=== PATIENT | male | born 1965 | race Caucasian/White ===

== ENCOUNTER 2023-01-28 10:42 | Inpatient (IN) | payer MEDICAID ==
[2023-01-28] MEDS ORDERED: Labetalol 20 MG/4 ML Syringe IVPUSH ONE (11:06)
[2023-01-28 11:15] LABS: BLOOD UREA NITROGEN,BUN 10 mg/dL (7-18); BUN/CREATININE RATIO 9.1 (9-20); CALCIUM 9.1 mg/dL (8.6-10.2); CARBON DIOXIDE,CO2 27 mmol/L (21-32); CHLORIDE,CL 100 mmol/L (100-110); CREATININE 1.1 mg/dL (0.70-1.30); EST CRCL DRUG DOSING (CG) 68.44 mL/min; ESTIMATED GFR 78 mL/min (>60); GLUCOSE RANDOM 144 mg/dL (80-116); POTASSIUM,K 3.5 mmol/L (3.5-5.3); SODIUM,NA 137 mmol/L (135-145)
[2023-01-28 11:17] LABS: BASOPHILS ABSOLUTE AUTO 0.1 x10-3/uL (0.0-0.3); BASOPHILS PERCENT AUTO 1.1 % (0.3-3.8); EOSINOPHILS ABSOLUTE AUTO 0.2 x10-3/uL (0.0-0.6); EOSINOPHILS PERCENT AUTO 3.5 % (0.1-6.8); HEMATOCRIT 44.4 % (38.3-50.1); HEMOGLOBIN 15.1 g/dL (12.9-17.7); LYMPHOCYTES ABSOLUTE AUTO 2.3 x10-3/uL (0.5-4.5); LYMPHOCYTES PERCENT AUTO 33.3 % (15.8-45.3); MEAN CORPUSCULAR HEMOGLOBIN 30.4 pg (27.0-33.3); MEAN CORPUSCULAR HGB CONC 34.1 g/dL (28.7-35.3); MEAN CORPUSCULAR VOLUME 89.1 fL (80.8-98.7); MEAN PLATELET VOLUME 7.7 fL (6.7-11.0); MONOCYTES ABSOLUTE AUTO 0.6 x10-3/uL (0.0-1.2); MONOCYTES PERCENT AUTO 8.8 % (5.5-15.2); NEUTROPHILS ABSOLUTE AUTO 3.6 x10-3/uL (1.7-6.9); NEUTROPHILS PERCENT AUTO 53.3 % (40.3-71.8); PLATELET COUNT,PLT 248 x10(3)uL (117-477); RED BLOOD CELL COUNT 4.98 x10(6)uL (3.90-5.90); RED CELL DISTRIBUTION WIDTH 13.7 % (12.4-15.0); WHITE BLOOD CELL COUNT,WBC 6.8 x10-3/uL (3.2-10.1)
[2023-01-28] MEDS: Sodium Chloride 0.9% 10 ML Syringe FLUSH PRN ×2 (11:18→12:24)
[2023-01-28] MEDS ORDERED: amLODIPine 10 MG Tab PO STA (11:18)
[2023-01-28] MEDS ORDERED: cloNIDine 0.1 MG Tab PO STA (11:18)
[2023-01-28 11:21] LABS: A/G RATIO 0.8; ALANINE AMINOTRANSFERASE,ALT 12 U/L (12-36); ALBUMIN 3.8 g/dL (3.5-5.2); ALKALINE PHOSPHATASE 136 IU/L (56-112); ASPARTATE AMNIOTRANSFERASE,AST 18 IU/L (5-25); BILIRUBIN TOTAL 0.4 mg/dL (0.1-1.3); PROTEIN TOTAL,TP 8.9 g/dL (6.0-8.0)
[2023-01-28 11:32] LABS: TROPONIN I 8.6 pg/mL (4.0-60.3)
[2023-01-28 11:39] LABS: AMPHETAMINES SCREEN, URINE NEGATIVE (NEGATIVE); BARBITURATE SCREEN,URINE NEGATIVE (NEGATIVE); BENZODIAZEPINES SCREEN,URINE NEGATIVE (NEGATIVE); BUPRENORPHINE SCREEN,URINE NEGATIVE (NEGATIVE); METHADONE SCREEN, URINE NEGATIVE (NEGATIVE); METHAMPHETAMINE SCREEN, URINE NEGATIVE (NEGATIVE); OXYCODONE SCREEN,URINE NEGATIVE (NEGATIVE); PROPOXYPHENE SCREEN,URINE NEGATIVE (NEGATIVE); THC SCREEN,URINE NEGATIVE (NEGATIVE)
[2023-01-28] MEDS ORDERED: hydrALAZINE 20 MG/ML SDV IVPUSH ONE (12:11)
[2023-01-28] MEDS ORDERED: Iopamidol 755 Mg/ML 100 ML Bottle IV ONE (16:23)
[2023-01-28] MEDS ORDERED: Morphine 4 MG/ML VIAL IVPUSH ONE (16:24)
[2023-01-28] MEDS ORDERED: Clopidogrel 75 MG Tab PO ONE ×2 (17:29→19:45)
[2023-01-28] MEDS ORDERED: Acetaminophen 325 MG Tab PO PRN (17:29)
[2023-01-28] MEDS ORDERED: Ondansetron 4 MG/2 ML SDV IV PRN (17:29)
[2023-01-28] MEDS ORDERED: Aspirin 81 MG Tab.Chew PO ONE ×2 (17:29→19:45)
[2023-01-28] MEDS ORDERED: Enoxaparin 40 MG/0.4 ML Syringe SUBCUT SCH (17:30)
[2023-01-28] MEDS: Nicotine 21 MG/24 Hr Patch TRDERM SCH (17:35)
[2023-01-28] MEDS ORDERED: Pneumococcal Polyvalent-23 Vaccine 0.5 ML SDV SUBCUT ONE (18:09)
[2023-01-28] MEDS: Enoxaparin 40 MG/0.4 ML Syringe SUBCUT SCH (20:27)
[2023-01-29 06:48] LABS: BASOPHILS ABSOLUTE AUTO 0.1 x10-3/uL (0.0-0.3); BASOPHILS PERCENT AUTO 1.1 % (0.3-3.8); EOSINOPHILS ABSOLUTE AUTO 0.1 x10-3/uL (0.0-0.6); EOSINOPHILS PERCENT AUTO 2.4 % (0.1-6.8); HEMATOCRIT 40.3 % (38.3-50.1); HEMOGLOBIN 13.8 g/dL (12.9-17.7); LYMPHOCYTES ABSOLUTE AUTO 1.5 x10-3/uL (0.5-4.5); LYMPHOCYTES PERCENT AUTO 26.5 % (15.8-45.3); MEAN CORPUSCULAR HEMOGLOBIN 30.3 pg (27.0-33.3); MEAN CORPUSCULAR HGB CONC 34.3 g/dL (28.7-35.3); MEAN CORPUSCULAR VOLUME 88.2 fL (80.8-98.7); MEAN PLATELET VOLUME 7.6 fL (6.7-11.0); MONOCYTES ABSOLUTE AUTO 0.4 x10-3/uL (0.0-1.2); MONOCYTES PERCENT AUTO 6.8 % (5.5-15.2); NEUTROPHILS ABSOLUTE AUTO 3.5 x10-3/uL (1.7-6.9); NEUTROPHILS PERCENT AUTO 63.2 % (40.3-71.8); PLATELET COUNT,PLT 251 x10(3)uL (117-477); RED BLOOD CELL COUNT 4.57 x10(6)uL (3.90-5.90); RED CELL DISTRIBUTION WIDTH 13.8 % (12.4-15.0); WHITE BLOOD CELL COUNT,WBC 5.6 x10-3/uL (3.2-10.1)
[2023-01-29 07:03] LABS: A/G RATIO 0.7; ALANINE AMINOTRANSFERASE,ALT 14 U/L (12-36); ALBUMIN 3.4 g/dL (3.5-5.2); ALKALINE PHOSPHATASE 116 IU/L (56-112); ASPARTATE AMNIOTRANSFERASE,AST 21 IU/L (5-25); BILIRUBIN TOTAL 0.5 mg/dL (0.1-1.3); BLOOD UREA NITROGEN,BUN 9 mg/dL (7-18); CARBON DIOXIDE,CO2 26 mmol/L (21-32); CHLORIDE,CL 103 mmol/L (100-110); CREATININE 0.9 mg/dL (0.70-1.30); EST CRCL DRUG DOSING (CG) 83.65 mL/min; ESTIMATED GFR 99 mL/min (>60); GLUCOSE RANDOM 113 mg/dL (80-116); POTASSIUM,K 3.6 mmol/L (3.5-5.3); SODIUM,NA 137 mmol/L (135-145)
[2023-01-29] MEDS: Nicotine 21 MG/24 Hr Patch TRDERM SCH (08:29)
[2023-01-29] MEDS: NICOTINE PATCH TRDERM SCH (08:30)
[2023-01-29] MEDS: amLODIPine 10 MG Tab PO SCH (08:31)
[2023-01-29] MEDS: Atenolol 25 MG Tab PO SCH (08:31)
[2023-01-29] MEDS ORDERED: Gadoteridol 279.3 MG/ML 10 ML SDV IVPUSH ONE (14:07)
[2023-01-29] MEDS: Enoxaparin 40 MG/0.4 ML Syringe SUBCUT SCH (20:52)
[2023-01-30] MEDS: NICOTINE PATCH TRDERM SCH (08:15)
[2023-01-30] MEDS: Nicotine 21 MG/24 Hr Patch TRDERM SCH (08:15)
[2023-01-30] MEDS: Atenolol 25 MG Tab PO SCH (08:17)
[2023-01-30] MEDS: amLODIPine 10 MG Tab PO SCH (08:17)
[2023-01-30] MEDS ORDERED: Atenolol 25 MG Tab PO ONE (10:36)
[2023-01-30] MEDS: Enoxaparin 40 MG/0.4 ML Syringe SUBCUT SCH (20:35)
[2023-01-31 06:31] LABS: BASOPHILS ABSOLUTE AUTO 0.1 x10-3/uL (0.0-0.3); BASOPHILS PERCENT AUTO 1.5 % (0.3-3.8); EOSINOPHILS ABSOLUTE AUTO 0.4 x10-3/uL (0.0-0.6); HEMATOCRIT 43.8 % (38.3-50.1); HEMOGLOBIN 14.8 g/dL (12.9-17.7); LYMPHOCYTES ABSOLUTE AUTO 2.2 x10-3/uL (0.5-4.5); LYMPHOCYTES PERCENT AUTO 35.2 % (15.8-45.3); MEAN CORPUSCULAR HEMOGLOBIN 30.2 pg (27.0-33.3); MEAN CORPUSCULAR HGB CONC 33.8 g/dL (28.7-35.3); MEAN CORPUSCULAR VOLUME 89.4 fL (80.8-98.7); MEAN PLATELET VOLUME 7.5 fL (6.7-11.0); MONOCYTES ABSOLUTE AUTO 0.6 x10-3/uL (0.0-1.2); MONOCYTES PERCENT AUTO 10.4 % (5.5-15.2); NEUTROPHILS ABSOLUTE AUTO 2.9 x10-3/uL (1.7-6.9); NEUTROPHILS PERCENT AUTO 46.9 % (40.3-71.8); PLATELET COUNT,PLT 257 x10(3)uL (117-477); RED CELL DISTRIBUTION WIDTH 13.7 % (12.4-15.0); WHITE BLOOD CELL COUNT,WBC 6.3 x10-3/uL (3.2-10.1)
[2023-01-31 06:37] LABS: BLOOD UREA NITROGEN,BUN 14 mg/dL (7-18); CARBON DIOXIDE,CO2 28 mmol/L (21-32); CHLORIDE,CL 104 mmol/L (100-110); EST CRCL DRUG DOSING (CG) 75.28 mL/min; ESTIMATED GFR 87 mL/min (>60); GLUCOSE RANDOM 90 mg/dL (80-116); POTASSIUM,K 3.9 mmol/L (3.5-5.3); SODIUM,NA 138 mmol/L (135-145)
[2023-01-31] MEDS ORDERED: Thiamine 100 MG Tab PO ONE (08:00)
[2023-01-31] MEDS: Nicotine 21 MG/24 Hr Patch TRDERM SCH (08:54)
[2023-01-31] MEDS: NICOTINE PATCH TRDERM SCH (08:54)
[2023-01-31] MEDS: amLODIPine 10 MG Tab PO SCH (08:55)
[2023-01-31] MEDS: Atenolol 50 MG Tab PO SCH (08:56)
[2023-01-31] MEDS: Folic Acid/Vitamin B Complex With C Cap PO SCH (09:06)
[2023-01-31] MEDS: Enoxaparin 40 MG/0.4 ML Syringe SUBCUT SCH (20:13)
[2023-01-31] MEDS: Thiamine 100 MG Tab PO SCH (20:15)
[2023-01-31] MEDS: Sodium Chloride 0.9% 10 ML Syringe FLUSH PRN (20:18)
[2023-02-01 06:24] LABS: BASOPHILS ABSOLUTE AUTO 0.1 x10-3/uL (0.0-0.3); BASOPHILS PERCENT AUTO 1.5 % (0.3-3.8); EOSINOPHILS ABSOLUTE AUTO 0.3 x10-3/uL (0.0-0.6); HEMATOCRIT 42.8 % (38.3-50.1); HEMOGLOBIN 14.8 g/dL (12.9-17.7); LYMPHOCYTES ABSOLUTE AUTO 2.5 x10-3/uL (0.5-4.5); MEAN CORPUSCULAR HEMOGLOBIN 30.9 pg (27.0-33.3); MEAN CORPUSCULAR HGB CONC 34.7 g/dL (28.7-35.3); MEAN CORPUSCULAR VOLUME 89.1 fL (80.8-98.7); MEAN PLATELET VOLUME 7.6 fL (6.7-11.0); MONOCYTES ABSOLUTE AUTO 0.7 x10-3/uL (0.0-1.2); MONOCYTES PERCENT AUTO 10.6 % (5.5-15.2); NEUTROPHILS ABSOLUTE AUTO 2.7 x10-3/uL (1.7-6.9); NEUTROPHILS PERCENT AUTO 42.9 % (40.3-71.8); PLATELET COUNT,PLT 262 x10(3)uL (117-477); WHITE BLOOD CELL COUNT,WBC 6.4 x10-3/uL (3.2-10.1)
[2023-02-01 06:31] LABS: BLOOD UREA NITROGEN,BUN 14 mg/dL (7-18); CALCIUM 8.8 mg/dL (8.6-10.2); CARBON DIOXIDE,CO2 27 mmol/L (21-32); CHLORIDE,CL 102 mmol/L (100-110); EST CRCL DRUG DOSING (CG) 75.28 mL/min; ESTIMATED GFR 87 mL/min (>60); GLUCOSE RANDOM 86 mg/dL (80-116); POTASSIUM,K 3.5 mmol/L (3.5-5.3); SODIUM,NA 132 mmol/L (135-145)
[2023-02-01] MEDS ORDERED: Metoprolol Succinate 25 MG Tab.ER PO ONE (07:53)
[2023-02-01] MEDS ORDERED: Losartan 50 MG Tab PO ONE (08:13)
[2023-02-01] MEDS: amLODIPine 10 MG Tab PO SCH (09:05)
[2023-02-01] MEDS: Nicotine 21 MG/24 Hr Patch TRDERM SCH (09:05)
[2023-02-01] MEDS: NICOTINE PATCH TRDERM SCH (09:06)
[2023-02-01] MEDS: Folic Acid/Vitamin B Complex With C Cap PO SCH (09:07)
[2023-02-01] MEDS: Atenolol 50 MG Tab PO SCH (09:07)
[2023-02-01] MEDS: Thiamine 100 MG Tab PO SCH (20:20)
[2023-02-01] MEDS: Enoxaparin 40 MG/0.4 ML Syringe SUBCUT SCH (20:20)
[2023-02-02 06:36] LABS: BASOPHILS ABSOLUTE AUTO 0.1 x10-3/uL (0.0-0.3); BASOPHILS PERCENT AUTO 0.9 % (0.3-3.8); EOSINOPHILS ABSOLUTE AUTO 0.3 x10-3/uL (0.0-0.6); EOSINOPHILS PERCENT AUTO 4.4 % (0.1-6.8); HEMATOCRIT 45.3 % (38.3-50.1); HEMOGLOBIN 15.4 g/dL (12.9-17.7); LYMPHOCYTES ABSOLUTE AUTO 2.2 x10-3/uL (0.5-4.5); LYMPHOCYTES PERCENT AUTO 33.2 % (15.8-45.3); MEAN CORPUSCULAR HEMOGLOBIN 30.1 pg (27.0-33.3); MEAN CORPUSCULAR HGB CONC 33.9 g/dL (28.7-35.3); MEAN CORPUSCULAR VOLUME 88.7 fL (80.8-98.7); MEAN PLATELET VOLUME 7.5 fL (6.7-11.0); MONOCYTES ABSOLUTE AUTO 0.7 x10-3/uL (0.0-1.2); MONOCYTES PERCENT AUTO 10.3 % (5.5-15.2); NEUTROPHILS ABSOLUTE AUTO 3.4 x10-3/uL (1.7-6.9); NEUTROPHILS PERCENT AUTO 51.2 % (40.3-71.8); PLATELET COUNT,PLT 277 x10(3)uL (117-477); RED BLOOD CELL COUNT 5.11 x10(6)uL (3.90-5.90); RED CELL DISTRIBUTION WIDTH 13.7 % (12.4-15.0); WHITE BLOOD CELL COUNT,WBC 6.6 x10-3/uL (3.2-10.1)
[2023-02-02 06:40] LABS: BLOOD UREA NITROGEN,BUN 16 mg/dL (7-18); CALCIUM 9.2 mg/dL (8.6-10.2); CARBON DIOXIDE,CO2 27 mmol/L (21-32); CHLORIDE,CL 103 mmol/L (100-110); EST CRCL DRUG DOSING (CG) 75.28 mL/min; ESTIMATED GFR 87 mL/min (>60); GLUCOSE RANDOM 82 mg/dL (80-116); POTASSIUM,K 4.2 mmol/L (3.5-5.3); SODIUM,NA 137 mmol/L (135-145)
[2023-02-02] MEDS: Nicotine 21 MG/24 Hr Patch TRDERM SCH (08:24)
[2023-02-02] MEDS: Folic Acid/Vitamin B Complex With C Cap PO SCH (08:25)
[2023-02-02] MEDS: NICOTINE PATCH TRDERM SCH (08:25)
[2023-02-02] MEDS: amLODIPine 10 MG Tab PO SCH (08:25)
[2023-02-02] MEDS: Atenolol 50 MG Tab PO SCH (08:25)
[2023-02-02] MEDS: BIKTARVY PO SCH (17:52)
[2023-02-02] MEDS: Thiamine 100 MG Tab PO SCH (19:59)
[2023-02-02] MEDS: Enoxaparin 40 MG/0.4 ML Syringe SUBCUT SCH (19:59)
[2023-02-03] MEDS: Nicotine 21 MG/24 Hr Patch TRDERM SCH (07:59)
[2023-02-03] MEDS: Atenolol 50 MG Tab PO SCH (08:00)
[2023-02-03] MEDS: NICOTINE PATCH TRDERM SCH (08:00)
[2023-02-03] MEDS: Folic Acid/Vitamin B Complex With C Cap PO SCH (08:00)
[2023-02-03] MEDS: amLODIPine 10 MG Tab PO SCH (08:00)
[2023-02-03] MEDS ORDERED: Losartan 50 MG Tab PO SCH (09:15)
[2023-02-03 12:09] LABS: % CD 4 POS. LYMPH. 14.4 % (30.8-58.5); ABSOLUTE CD 4 HELPER 374 /uL (359-1519); BASO (ABSOLUTE) 0.1 x10E3/uL (0.0-0.2); BASOS 2 % (Not Estab.); EOS 5 % (Not Estab.); EOS (ABSOLUTE) 0.3 x10E3/uL (0.0-0.4); HEMATOCRIT 43.4 % (37.5-51.0); HEMOGLOBIN 15.3 g/dL (13.0-17.7); IMMATURE GRANS (ABS) 0.1 x10E3/uL (0.0-0.1); IMMATURE GRANULOCYTES 1 % (Not Estab.); LYMPHS 42 % (Not Estab.); LYMPHS (ABSOLUTE) 2.6 x10E3/uL (0.7-3.1); MCH 31.2 pg (26.6-33.0); MCHC 35.3 g/dL (31.5-35.7); MCV 88 fL (79-97); MONOCYTES 11 % (Not Estab.); MONOCYTES(ABSOLUTE) 0.7 x10E3/uL (0.1-0.9); NEUTROPHILS 39 % (Not Estab.); NEUTROPHILS (ABSOLUTE) 2.4 x10E3/uL (1.4-7.0); PLATELETS 258 x10E3/uL (150-450); RBC 4.91 x10E6/uL (4.14-5.80); RDW 13.1 % (11.6-15.4)
[2023-02-03] MEDS ORDERED: Atenolol 25 MG Tab PO ONE (13:21)
[2023-02-03] MEDS: BIKTARVY PO SCH (18:04)
[2023-02-03] MEDS: Enoxaparin 40 MG/0.4 ML Syringe SUBCUT SCH (20:50)
[2023-02-03] MEDS: Thiamine 100 MG Tab PO SCH (20:50)
[2023-02-04] MEDS: Nicotine 21 MG/24 Hr Patch TRDERM SCH (08:44)
[2023-02-04] MEDS: Folic Acid/Vitamin B Complex With C Cap PO SCH (08:45)
[2023-02-04] MEDS: NICOTINE PATCH TRDERM SCH (08:45)
[2023-02-04] MEDS: amLODIPine 10 MG Tab PO SCH (08:46)
[2023-02-04] MEDS: Atenolol 50 MG Tab PO SCH (08:46)
[2023-02-04] MEDS: BIKTARVY PO SCH (18:01)
[2023-02-04] MEDS: Enoxaparin 40 MG/0.4 ML Syringe SUBCUT SCH (19:32)
[2023-02-04] MEDS: Thiamine 100 MG Tab PO SCH (21:03)
[2023-02-05] MEDS: Nicotine 21 MG/24 Hr Patch TRDERM SCH (08:00)
[2023-02-05] MEDS: NICOTINE PATCH TRDERM SCH (08:02)
[2023-02-05] MEDS: Folic Acid/Vitamin B Complex With C Cap PO SCH (08:07)
[2023-02-05] MEDS: amLODIPine 10 MG Tab PO SCH (08:11)
[2023-02-05] MEDS: BIKTARVY PO SCH (17:44)
[2023-02-05] MEDS: Thiamine 100 MG Tab PO SCH (20:14)
[2023-02-05] MEDS: Enoxaparin 40 MG/0.4 ML Syringe SUBCUT SCH (20:14)
[2023-02-06] MEDS: Nicotine 21 MG/24 Hr Patch TRDERM SCH (08:05)
[2023-02-06] MEDS: NICOTINE PATCH TRDERM SCH (08:05)
[2023-02-06] MEDS: amLODIPine 10 MG Tab PO SCH (08:06)
[2023-02-06] MEDS: Folic Acid/Vitamin B Complex With C Cap PO SCH (08:07)
[2023-02-06] MEDS: BIKTARVY PO SCH (17:52)
[2023-02-06] MEDS: Enoxaparin 40 MG/0.4 ML Syringe SUBCUT SCH (20:30)
[2023-02-06] MEDS: Thiamine 100 MG Tab PO SCH (20:30)
[2023-02-07] MEDS: Nicotine 21 MG/24 Hr Patch TRDERM SCH (08:12)
[2023-02-07] MEDS: amLODIPine 10 MG Tab PO SCH (08:13)
[2023-02-07] MEDS: Hydrochlorothiazide 25 MG Tab PO SCH (08:13)
[2023-02-07] MEDS: NICOTINE PATCH TRDERM SCH (08:13)
[2023-02-07] MEDS: Folic Acid/Vitamin B Complex With C Cap PO SCH (08:14)
[2023-02-07] MEDS ORDERED: BIKTARVY PO SCH (09:00)
[2023-02-07] MEDS: BIKTARVY PO SCH (18:03)
[2023-02-07] MEDS: Thiamine 100 MG Tab PO SCH (20:10)
[2023-02-07] MEDS: Enoxaparin 40 MG/0.4 ML Syringe SUBCUT SCH (20:11)
[2023-02-08] MEDS: Nicotine 21 MG/24 Hr Patch TRDERM SCH (09:02)
[2023-02-08] MEDS: Folic Acid/Vitamin B Complex With C Cap PO SCH (09:03)
[2023-02-08] MEDS: amLODIPine 10 MG Tab PO SCH (09:03)
[2023-02-08] MEDS: NICOTINE PATCH TRDERM SCH (09:04)
[2023-02-08] MEDS: Hydrochlorothiazide 25 MG Tab PO SCH (09:06)
[2023-02-08] MEDS: BIKTARVY PO SCH (17:42)
[2023-02-08] MEDS: Enoxaparin 40 MG/0.4 ML Syringe SUBCUT SCH (21:41)
[2023-02-08] MEDS: Thiamine 100 MG Tab PO SCH (21:42)
[2023-02-09] MEDS: Nicotine 21 MG/24 Hr Patch TRDERM SCH (08:17)
[2023-02-09] MEDS: Hydrochlorothiazide 25 MG Tab PO SCH (08:18)
[2023-02-09] MEDS: NICOTINE PATCH TRDERM SCH (08:18)
[2023-02-09] MEDS: amLODIPine 10 MG Tab PO SCH (08:19)
[2023-02-09] MEDS: Folic Acid/Vitamin B Complex With C Cap PO SCH (08:19)
[2023-02-09] MEDS: BIKTARVY PO SCH (17:56)
[2023-02-09] MEDS: Enoxaparin 40 MG/0.4 ML Syringe SUBCUT SCH (21:46)
[2023-02-09] MEDS: Thiamine 100 MG Tab PO SCH (21:47)
[2023-02-10] MEDS: amLODIPine 10 MG Tab PO SCH (08:49)
[2023-02-10] MEDS: Folic Acid/Vitamin B Complex With C Cap PO SCH (08:49)
[2023-02-10] MEDS: NICOTINE PATCH TRDERM SCH (08:49)
[2023-02-10] MEDS: Nicotine 21 MG/24 Hr Patch TRDERM SCH (08:49)
[2023-02-10] MEDS: Hydrochlorothiazide 25 MG Tab PO SCH (08:50)
[2023-02-10] MEDS: BIKTARVY PO SCH (18:01)
[2023-02-10] MEDS: Thiamine 100 MG Tab PO SCH (20:31)
[2023-02-10] MEDS: Enoxaparin 40 MG/0.4 ML Syringe SUBCUT SCH (20:31)
[2023-02-11] MEDS: Hydrochlorothiazide 25 MG Tab PO SCH (09:58)
[2023-02-11] MEDS: amLODIPine 10 MG Tab PO SCH (09:58)
[2023-02-11] MEDS: Folic Acid/Vitamin B Complex With C Cap PO SCH (09:58)
[2023-02-11] MEDS: NICOTINE PATCH TRDERM SCH (09:59)
[2023-02-11] MEDS: Nicotine 21 MG/24 Hr Patch TRDERM SCH (09:59)
[2023-02-11] MEDS: BIKTARVY PO SCH (17:26)
[2023-02-11] MEDS: Enoxaparin 40 MG/0.4 ML Syringe SUBCUT SCH (20:09)
[2023-02-11] MEDS: Thiamine 100 MG Tab PO SCH (20:10)
[2023-02-12] MEDS: NICOTINE PATCH TRDERM SCH (08:18)
[2023-02-12] MEDS: Hydrochlorothiazide 25 MG Tab PO SCH (08:18)
[2023-02-12] MEDS: Folic Acid/Vitamin B Complex With C Cap PO SCH (08:18)
[2023-02-12] MEDS: amLODIPine 10 MG Tab PO SCH (08:18)
[2023-02-12] MEDS: Nicotine 21 MG/24 Hr Patch TRDERM SCH (08:19)
[2023-02-12] MEDS: BIKTARVY PO SCH (17:51)
[2023-02-12] MEDS: Enoxaparin 40 MG/0.4 ML Syringe SUBCUT SCH (20:21)
[2023-02-12] MEDS: Thiamine 100 MG Tab PO SCH (20:21)
[2023-02-13] MEDS: Nicotine 21 MG/24 Hr Patch TRDERM SCH (08:15)
[2023-02-13] MEDS: Hydrochlorothiazide 25 MG Tab PO SCH (08:16)
[2023-02-13] MEDS: NICOTINE PATCH TRDERM SCH (08:16)
[2023-02-13] MEDS: amLODIPine 10 MG Tab PO SCH (08:16)
[2023-02-13] MEDS: Folic Acid/Vitamin B Complex With C Cap PO SCH (08:17)
[2023-02-13] MEDS: BIKTARVY PO SCH (18:27)
[2023-02-13] MEDS: Enoxaparin 40 MG/0.4 ML Syringe SUBCUT SCH (20:50)
[2023-02-13] MEDS: Thiamine 100 MG Tab PO SCH (20:51)
[2023-02-14] MEDS: Nicotine 21 MG/24 Hr Patch TRDERM SCH (08:14)
[2023-02-14] MEDS: NICOTINE PATCH TRDERM SCH (08:15)
[2023-02-14] MEDS: amLODIPine 10 MG Tab PO SCH (08:16)
[2023-02-14] MEDS: Hydrochlorothiazide 25 MG Tab PO SCH (08:16)
[2023-02-14] MEDS: Folic Acid/Vitamin B Complex With C Cap PO SCH (08:16)
[2023-02-14] MEDS: BIKTARVY PO SCH (18:27)
[2023-02-14] MEDS: Enoxaparin 40 MG/0.4 ML Syringe SUBCUT SCH (20:28)
[2023-02-14] MEDS: Thiamine 100 MG Tab PO SCH (20:28)
[2023-02-15] MEDS: Nicotine 21 MG/24 Hr Patch TRDERM SCH (08:14)
[2023-02-15] MEDS: NICOTINE PATCH TRDERM SCH (08:14)
[2023-02-15] MEDS: Hydrochlorothiazide 25 MG Tab PO SCH (08:15)
[2023-02-15] MEDS: amLODIPine 10 MG Tab PO SCH (08:15)
[2023-02-15] MEDS: Folic Acid/Vitamin B Complex With C Cap PO SCH (08:15)
[2023-02-15] MEDS: BIKTARVY PO SCH (17:53)
[2023-02-15] MEDS: Thiamine 100 MG Tab PO SCH (20:01)
[2023-02-15] MEDS: Enoxaparin 40 MG/0.4 ML Syringe SUBCUT SCH (20:01)
[2023-02-16] MEDS: Folic Acid/Vitamin B Complex With C Cap PO SCH (08:06)
[2023-02-16] MEDS: Hydrochlorothiazide 25 MG Tab PO SCH (08:06)
[2023-02-16] MEDS: amLODIPine 10 MG Tab PO SCH (08:06)
[2023-02-16] MEDS: NICOTINE PATCH TRDERM SCH (08:07)
[2023-02-16] MEDS: Nicotine 21 MG/24 Hr Patch TRDERM SCH (08:07)
[2023-02-16] MEDS: BIKTARVY PO SCH (17:48)
[2023-02-16] MEDS: Enoxaparin 40 MG/0.4 ML Syringe SUBCUT SCH (22:03)
[2023-02-16] MEDS: Thiamine 100 MG Tab PO SCH (22:04)
[2023-02-17] MEDS: Nicotine 21 MG/24 Hr Patch TRDERM SCH (08:04)
[2023-02-17] MEDS: Hydrochlorothiazide 25 MG Tab PO SCH (08:05)
[2023-02-17] MEDS: NICOTINE PATCH TRDERM SCH (08:05)
[2023-02-17] MEDS: Folic Acid/Vitamin B Complex With C Cap PO SCH (08:05)
[2023-02-17] MEDS: amLODIPine 10 MG Tab PO SCH (08:05)
== END 2023-02-17 09:15 | DRG 556 ==
LOC: FB.ED 10:42 → FB.MS 15:16
PROVIDERS: ADMIT Emergency Medicine; ATTEND Family Medicine
DX: M62.81 Muscle weakness (generalized) (principal); I16.9 Hypertensive crisis, unspecified; B20 Human immunodeficiency virus [HIV] disease; I10 Essential (primary) hypertension; R29.6 Repeated falls; F10.10 Alcohol abuse, uncomplicated; R51.9 Headache, unspecified; N39.41 Urge incontinence; F17.210 Nicotine dependence, cigarettes, uncomplicated; F41.9 Anxiety disorder, unspecified; F32.A Depression, unspecified; R15.9 Full incontinence of feces; Z90.49 Acquired absence of other specified parts of digestive tract; Z98.890 Other specified postprocedural states; Z88.5 Allergy status to narcotic agent
CPT/HCPCS: 36415; 70450; 70496; 70498; 71045; 72156; 72157; 72158; 80048; 80053; 80307; 83880; 84484; 85025; 86361; 90732; 93005; 93010; 96374; 96375; 97116-GP; 97161-GP; 97165-GO; 97530-GO; 97535-GO; 99285; 99285-25; A9270-GY; A9579; G0009; J0360; J1650; J3490; Q9967

== ENCOUNTER 2023-10-01 16:11 | Inpatient (IN) | payer MEDICAID ==
[2023-10-01] MEDS ORDERED: Labetalol 20 MG/4 ML Syringe IVPUSH ONE (16:43)
[2023-10-01] MEDS: Sodium Chloride 0.9% 10 ML Syringe FLUSH PRN ×2 (17:25→23:15)
[2023-10-01 17:26] LABS: BASOPHILS PERCENT AUTO 0.4 % (0.3-3.8); HEMATOCRIT 46.8 % (38.3-50.1); HEMOGLOBIN 16.5 g/dL (12.9-17.7); LYMPHOCYTES PERCENT AUTO 19.3 % (15.8-45.3); MEAN CORPUSCULAR HEMOGLOBIN 32.6 pg (27.0-33.3); MEAN CORPUSCULAR HGB CONC 35.3 g/dL (28.7-35.3); MEAN CORPUSCULAR VOLUME 92.5 fL (80.8-98.7); MEAN PLATELET VOLUME 8.8 fL (6.7-11.0); MONOCYTES ABSOLUTE AUTO 0.6 x10-3/uL (0.0-1.2); MONOCYTES PERCENT AUTO 5.9 % (5.5-15.2); NEUTROPHILS ABSOLUTE AUTO 7.6 x10-3/uL (1.7-6.9); NEUTROPHILS PERCENT AUTO 74.4 % (40.3-71.8); PLATELET COUNT,PLT 207 x10(3)uL (117-477); RED BLOOD CELL COUNT 5.06 x10(6)uL (3.90-5.90); RED CELL DISTRIBUTION WIDTH 12.5 % (12.4-15.0); WHITE BLOOD CELL COUNT,WBC 10.2 x10-3/uL (3.2-10.1)
[2023-10-01 17:28] LABS: BLOOD UREA NITROGEN,BUN 9 mg/dL (7-18); CALCIUM 9.6 mg/dL (8.6-10.2); CARBON DIOXIDE,CO2 29 mmol/L (21-32); CHLORIDE,CL 99 mmol/L (100-110); ESTIMATED GFR 87 mL/min (>60); GLUCOSE RANDOM 109 mg/dL (80-116); POTASSIUM,K 3.8 mmol/L (3.5-5.3); SODIUM,NA 136 mmol/L (135-145)
[2023-10-01 17:34] LABS: A/G RATIO 0.9; ALANINE AMINOTRANSFERASE,ALT 23 U/L (12-36); ALBUMIN 4.2 g/dL (3.5-5.2); ALKALINE PHOSPHATASE 125 IU/L (56-112); ASPARTATE AMNIOTRANSFERASE,AST 22 IU/L (5-25); BILIRUBIN TOTAL 0.5 mg/dL (0.1-1.3); MAGNESIUM 1.6 mg/dL (1.8-2.5); PHOSPHORUS 2.8 mg/dL (2.6-4.6); PROTEIN TOTAL,TP 8.9 g/dL (6.0-8.0)
[2023-10-01 17:43] LABS: TROPONIN I 5.3 pg/mL (4.0-60.3)
[2023-10-01] MEDS ORDERED: hydrALAZINE 20 MG/ML SDV IVPUSH ONE (17:49)
[2023-10-01] MEDS ORDERED: cloNIDine 0.1 MG Tab PO ONE (17:49)
[2023-10-01] MEDS ORDERED: Iopamidol 755 Mg/ML 100 ML Bottle IV ONE (18:28)
[2023-10-01] MEDS ORDERED: Ondansetron 4 MG/2 ML SDV IV PRN (20:15)
[2023-10-01] MEDS ORDERED: Acetaminophen 325 MG Tab PO PRN ×2 (20:15→20:23)
[2023-10-01] MEDS ORDERED: Magnesium Sulfate/Water 2 GM in Premix Bag 1 BAG IV ONE (20:26)
[2023-10-01] MEDS ORDERED: Nicotine 14 MG/24 Hr Patch TRDERM SCH (20:30)
[2023-10-01] MEDS: Enoxaparin 40 MG/0.4 ML Syringe SUBCUT SCH (22:26)
[2023-10-01] MEDS: Thiamine 100 MG Tab PO SCH (22:26)
[2023-10-02 08:00] LABS: BASOPHILS ABSOLUTE AUTO 0.1 x10-3/uL (0.0-0.3); BASOPHILS PERCENT AUTO 0.7 % (0.3-3.8); EOSINOPHILS ABSOLUTE AUTO 0.1 x10-3/uL (0.0-0.6); EOSINOPHILS PERCENT AUTO 0.6 % (0.1-6.8); HEMATOCRIT 42.3 % (38.3-50.1); HEMOGLOBIN 14.8 g/dL (12.9-17.7); LYMPHOCYTES ABSOLUTE AUTO 1.9 x10-3/uL (0.5-4.5); LYMPHOCYTES PERCENT AUTO 23.1 % (15.8-45.3); MEAN CORPUSCULAR HEMOGLOBIN 32.4 pg (27.0-33.3); MEAN CORPUSCULAR HGB CONC 34.9 g/dL (28.7-35.3); MEAN CORPUSCULAR VOLUME 92.8 fL (80.8-98.7); MEAN PLATELET VOLUME 9.2 fL (6.7-11.0); MONOCYTES ABSOLUTE AUTO 0.7 x10-3/uL (0.0-1.2); MONOCYTES PERCENT AUTO 8.6 % (5.5-15.2); NEUTROPHILS ABSOLUTE AUTO 5.4 x10-3/uL (1.7-6.9); PLATELET COUNT,PLT 190 x10(3)uL (117-477); RED BLOOD CELL COUNT 4.56 x10(6)uL (3.90-5.90); RED CELL DISTRIBUTION WIDTH 12.9 % (12.4-15.0); WHITE BLOOD CELL COUNT,WBC 8.1 x10-3/uL (3.2-10.1)
[2023-10-02 08:14] LABS: A/G RATIO 0.9; ALANINE AMINOTRANSFERASE,ALT 21 U/L (12-36); ALBUMIN 3.7 g/dL (3.5-5.2); ALKALINE PHOSPHATASE 108 IU/L (56-112); ASPARTATE AMNIOTRANSFERASE,AST 18 IU/L (5-25); BILIRUBIN TOTAL 0.8 mg/dL (0.1-1.3); BLOOD UREA NITROGEN,BUN 10 mg/dL (7-18); BUN/CREATININE RATIO 11.1 (9-20); CALCIUM 9.1 mg/dL (8.6-10.2); CARBON DIOXIDE,CO2 29 mmol/L (21-32); CHLORIDE,CL 100 mmol/L (100-110); CREATININE 0.9 mg/dL (0.70-1.30); EST CRCL DRUG DOSING (CG) 83.65 mL/min; ESTIMATED GFR 99 mL/min (>60); GLUCOSE RANDOM 111 mg/dL (80-116); POTASSIUM,K 3.3 mmol/L (3.5-5.3); PROTEIN TOTAL,TP 7.9 g/dL (6.0-8.0); SODIUM,NA 137 mmol/L (135-145)
[2023-10-02] MEDS: Multivitamins with Iron/Calcium/Folic Acid/Minerals Tab PO SCH (09:35)
[2023-10-02] MEDS: BIKTARVY PO SCH (09:35)
[2023-10-02] MEDS: Hydrochlorothiazide 25 MG Tab PO SCH (09:36)
[2023-10-02] MEDS: Nicotine 21 MG/24 Hr Patch TRDERM SCH (09:36)
[2023-10-02] MEDS: Atenolol 25 MG Tab PO SCH (09:38)
[2023-10-02] MEDS: amLODIPine 10 MG Tab PO SCH (09:38)
[2023-10-02] MEDS ORDERED: FLU (Flulaval Quad) 2023-24(6MOS UP)/PF 60 MCG/0.5 ML Syringe IM ONE (10:00)
[2023-10-02] MEDS: Enoxaparin 40 MG/0.4 ML Syringe SUBCUT SCH (20:03)
[2023-10-02] MEDS: Thiamine 100 MG Tab PO SCH (20:03)
[2023-10-03 07:24] LABS: BLOOD UREA NITROGEN,BUN 13 mg/dL (7-18); BUN/CREATININE RATIO 14.4 (9-20); CALCIUM 9.1 mg/dL (8.6-10.2); CARBON DIOXIDE,CO2 30 mmol/L (21-32); CHLORIDE,CL 97 mmol/L (100-110); CREATININE 0.9 mg/dL (0.70-1.30); EST CRCL DRUG DOSING (CG) 83.65 mL/min; ESTIMATED GFR 99 mL/min (>60); GLUCOSE RANDOM 112 mg/dL (80-116); POTASSIUM,K 3.4 mmol/L (3.5-5.3); SODIUM,NA 133 mmol/L (135-145)
[2023-10-03] MEDS: Multivitamins with Iron/Calcium/Folic Acid/Minerals Tab PO SCH (09:19)
[2023-10-03] MEDS: BIKTARVY PO SCH (09:19)
[2023-10-03] MEDS: Nicotine 21 MG/24 Hr Patch TRDERM SCH (09:20)
[2023-10-03] MEDS: amLODIPine 10 MG Tab PO SCH (09:25)
[2023-10-03] MEDS: Atenolol 25 MG Tab PO SCH (09:25)
[2023-10-03] MEDS: Hydrochlorothiazide 25 MG Tab PO SCH (09:25)
[2023-10-03] MEDS ORDERED: Aluminum Hydroxide/Magnesium Hydroxide Susp 30 ML Cup PO PRN (18:39)
[2023-10-03] MEDS: Thiamine 100 MG Tab PO SCH (20:59)
[2023-10-03] MEDS: Enoxaparin 40 MG/0.4 ML Syringe SUBCUT SCH (21:00)
[2023-10-04] MEDS: Nicotine 21 MG/24 Hr Patch TRDERM SCH (09:25)
[2023-10-04] MEDS: BIKTARVY PO SCH (09:25)
[2023-10-04 09:26] LABS: A/G RATIO 0.7; ALANINE AMINOTRANSFERASE,ALT 18 U/L (12-36); ALBUMIN 3.4 g/dL (3.5-5.2); ALKALINE PHOSPHATASE 98 IU/L (56-112); AMYLASE 68 U/L (25-115); ASPARTATE AMNIOTRANSFERASE,AST 14 IU/L (5-25); BILIRUBIN TOTAL 0.6 mg/dL (0.1-1.3); BLOOD UREA NITROGEN,BUN 17 mg/dL (7-18); BUN/CREATININE RATIO 15.5 (9-20); CALCIUM 9.2 mg/dL (8.6-10.2); CARBON DIOXIDE,CO2 32 mmol/L (21-32); CHLORIDE,CL 95 mmol/L (100-110); CREATININE 1.1 mg/dL (0.70-1.30); EST CRCL DRUG DOSING (CG) 68.44 mL/min; ESTIMATED GFR 78 mL/min (>60); GLUCOSE RANDOM 167 mg/dL (80-116); PROTEIN TOTAL,TP 8.1 g/dL (6.0-8.0); SODIUM,NA 132 mmol/L (135-145)
[2023-10-04] MEDS: Hydrochlorothiazide 25 MG Tab PO SCH (09:26)
[2023-10-04] MEDS: amLODIPine 10 MG Tab PO SCH (09:27)
[2023-10-04] MEDS: Multivitamins with Iron/Calcium/Folic Acid/Minerals Tab PO SCH (09:27)
[2023-10-04] MEDS: Atenolol 25 MG Tab PO SCH (09:27)
[2023-10-04] MEDS: Potassium Chloride 20 MEQ Tab.ER PO SCH (21:38)
[2023-10-04] MEDS: Thiamine 100 MG Tab PO SCH (21:38)
[2023-10-04] MEDS: Enoxaparin 40 MG/0.4 ML Syringe SUBCUT SCH (22:11)
[2023-10-05] MEDS: BIKTARVY PO SCH (09:37)
[2023-10-05] MEDS: Nicotine 21 MG/24 Hr Patch TRDERM SCH (09:38)
[2023-10-05] MEDS: amLODIPine 10 MG Tab PO SCH (09:39)
[2023-10-05] MEDS: Hydrochlorothiazide 25 MG Tab PO SCH (09:39)
[2023-10-05] MEDS: Multivitamins with Iron/Calcium/Folic Acid/Minerals Tab PO SCH (09:40)
[2023-10-05] MEDS: Atenolol 25 MG Tab PO SCH (09:41)
[2023-10-05] MEDS: Thiamine 100 MG Tab PO SCH (21:43)
[2023-10-05] MEDS: Enoxaparin 40 MG/0.4 ML Syringe SUBCUT SCH (21:43)
[2023-10-05] MEDS: Potassium Chloride 20 MEQ Tab.ER PO SCH (21:43)
[2023-10-05] MEDS ORDERED: Bisacodyl 5 MG Tab PO PRN (23:41)
[2023-10-06] MEDS: Multivitamins with Iron/Calcium/Folic Acid/Minerals Tab PO SCH (08:20)
[2023-10-06] MEDS: BIKTARVY PO SCH (08:20)
[2023-10-06] MEDS: Nicotine 21 MG/24 Hr Patch TRDERM SCH (08:21)
[2023-10-06] MEDS: Hydrochlorothiazide 25 MG Tab PO SCH (08:21)
[2023-10-06] MEDS: amLODIPine 10 MG Tab PO SCH (08:22)
[2023-10-06] MEDS: Atenolol 25 MG Tab PO SCH (08:22)
[2023-10-06] MEDS ORDERED: Polyethylene Glycol 3350 Powder 17 GM Packet PO PRN (08:38)
[2023-10-06] MEDS ORDERED: Bisacodyl 10 MG Supp RECTAL PRN (08:38)
[2023-10-06] MEDS: Thiamine 100 MG Tab PO SCH (20:45)
[2023-10-06] MEDS: Potassium Chloride 20 MEQ Tab.ER PO SCH (20:45)
[2023-10-06] MEDS: Enoxaparin 40 MG/0.4 ML Syringe SUBCUT SCH (20:45)
[2023-10-07] MEDS: BIKTARVY PO SCH (08:34)
[2023-10-07] MEDS: Multivitamins with Iron/Calcium/Folic Acid/Minerals Tab PO SCH (08:34)
[2023-10-07] MEDS: Atenolol 25 MG Tab PO SCH (08:35)
[2023-10-07] MEDS: Hydrochlorothiazide 25 MG Tab PO SCH (08:35)
[2023-10-07] MEDS: amLODIPine 10 MG Tab PO SCH (08:36)
[2023-10-07] MEDS: Nicotine 21 MG/24 Hr Patch TRDERM SCH (08:37)
== END 2023-10-07 12:45 | DRG 641 ==
LOC: FB.ED 16:11 → FB.MS 20:34
PROVIDERS: ADMIT Emergency Medicine; ATTEND Family Medicine
DX: R62.7 Adult failure to thrive (principal); F17.210 Nicotine dependence, cigarettes, uncomplicated; E83.42 Hypomagnesemia; R29.6 Repeated falls; F10.11 Alcohol abuse, in remission; Z21 Asymptomatic human immunodeficiency virus [HIV] infection status; I10 Essential (primary) hypertension; K59.01 Slow transit constipation; F41.9 Anxiety disorder, unspecified; F32.A Depression, unspecified; Z98.890 Other specified postprocedural states; Z90.49 Acquired absence of other specified parts of digestive tract; Z79.899 Other long term (current) drug therapy; Z88.5 Allergy status to narcotic agent; Z11.52 Encounter for screening for COVID-19; Z68.24 Body mass index [BMI] 24.0-24.9, adult
CPT/HCPCS: 36415; 71045; 74177; 80048; 80053; 80307; 82150; 83735; 83880; 84100; 84484; 85025; 90686; 93005; 97110-GP; 97161-GP; 97165-GO; 97530-GO; A9270-GY; G0008; J0360; J1650; J1920; J3475; J3490; Q9967; U0002